=== PATIENT | female | born 1955 | race Caucasian/White ===

== ENCOUNTER 2016-06-08 13:12 | Day surgery (SDC) | payer OTHER ==
[~2016-06-08] VITALS: Ht 157.5 cm; Wt 79.9 kg
[2016-06-08] MEDS ORDERED: LISINOPRIL (13:51)
[2016-06-08] MEDS ORDERED: ASPIRIN (13:51)
[2016-06-08 13:54] VITALS: Ht 157.5 cm; Wt 79.9 kg
[2016-06-08] MEDS ORDERED: MIDAZOLAM 1 MG/ML 2 ML INJ ONE (14:29)
[2016-06-08] MEDS ORDERED: PROPOFOL 20 ML ONE (14:29)
[2016-06-08] MEDS ORDERED: FENTAnyl 50 MCG/ML VIAL ONE (14:29)
[2016-06-08 14:40] VITALS: BP 135/83; PULSE 51; RESP 12
[2016-06-08 15:45] VITALS: BP 135/86; PULSE 50; RESP 18
--- NOTE | 2016-06-08 17:39 | GILP ---
DATE OF PROCEDURE: 06/08/2016 PREOPERATIVE DIAGNOSIS: This patient had a history of diverticulitis, several small bowel obstructi ons requiring several small bowel resections by surgery, adhesions. PROCEDURE DONE: Colonoscopy up to cecum with anesthesia. DESCRIPTION OF PROCEDURE: The patient was put in left lateral decubitus after obtaining informed co nsent, was sedated, monitored on oximetry, EKG, blood pressure and sedation were done by the anesthe siologist. Then I advanced a pediatric Olympus video colonoscope all the way to cecum. Appendiceal opening and ileocecal valve were identified and examination of the cecum, ascending colon normal. Transverse colon, descending colon normal. Descending colon, sigmoid colon had few diverticula but no diverticulitis. Rectosigmoid areas mild narrowing, but no evidence of any other abnormalities. The rectum was normal including by retroflexion. POSTOPERATIVE: Diverticulosis, mild narrowing of the rectosigmoid, otherwise unremarkable. The pat ient will follow up with primary care. If she has any more attacks of diverticulitis, consider surg ical opinion for left colectomy. At present, no further treatment other than high fiber diet and pr obiotics. Dictated By: FAYE KNOWLES Conf#: [id number] DID#: [id number] CC: Yogesh Encarnacion MD;*EndCC*
== END 2016-06-08 16:42 | disposition home or self-care (01) ==
LOC: GIL 13:12
PROVIDERS: ATTEND Internal Medicine
DX: K57.90 Diverticulosis of intestine, part unspecified, without perforation or abscess without bleeding (principal); I10 Essential (primary) hypertension; E78.5 Hyperlipidemia, unspecified
CPT/HCPCS: 45378; J2250; J3010; Z7610